=== PATIENT | female | born 1995 ===

== ENCOUNTER 2022-05-22 08:55 | Outpatient (RCR) | payer OTHER, SELFPAY | END 2022-05-23 09:26 | disposition hospice, home (50) | LOC: HO.PHPA 08:55 | PROVIDERS: Visit Provider Psychiatry & Neurology Psychiatry | DX: F31.32 Bipolar disorder, current episode depressed, moderate (principal); F41.1 Generalized anxiety disorder; F14.20 Cocaine dependence, uncomplicated; F12.20 Cannabis dependence, uncomplicated | CPT/HCPCS: 90791 ==

== ENCOUNTER 2022-06-22 11:45 | Outpatient (RCR) | payer OTHER, SELFPAY ==
[2022-06-11 10:50] VITALS: BP 102/80; PULSE 96; TEMP 36.6; BMI 26.9
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
[2022-06-11 12:23] LABS: Amphetamine Screen Urine Not Detected (Not Detect); Barbiturates, Urine Not Detected (Not Detect); Benzodiazepines Screen Urine Not Detected (Not Detect); Cannabinoid Screen Urine Not Detected (Not Detect); Cocaine Screen Urine Not Detected (Not Detect); Fentanyl, urine Not Detected (Not Detect); Opiate Screen Urine Not Detected (Not Detect); Phencyclidine Screen Urine Not Detected (Not Detect)
--- NOTE | 2022-06-13 13:50 | PC.NURSE ---
I met with pt and we reviewed treatment plan/goals. Pt says she's doing well in treatment and is feeling markedly better emotionally despite continued episodes of panic. She sees a therapist at [facility] and has been told she can obtain a med provider after 2 more therapy visits. She continues to regularly meet with her AA sponsor and to attend AA meetings. Tentative discharge date was planned for 06/21/22.
--- NOTE | 2022-06-14 15:45 | PC.NURSE ---
Case opened in treatment team.
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
--- NOTE | 2022-06-21 15:49 | PC.NURSE ---
Case opened in treatment team.
--- NOTE | 2022-06-22 09:19 | P.PNPSP_ITS ---
Subjective Subjective Date of Service: 06/22/22 Reason For Visit: bipolar Interim History: Feels stable for discharge today from [facility]. States that hydroxyzine and Trileptal [facility] did not go through to pharmacy, asking them to be recent. No SI, no hypomanic or manic symptoms, no depressive symptoms, feels good Medication Compliance: Yes Side effects from medications: No Attending Groups: Yes Review of Systems Acute medical concerns: No Medical Review of Systems: unchanged Review of Systems Review of Systems Yes all other systems are reviewed and are negative Constitutional: Reports no additional constitutional complaints Mental Status Exam Mental Status Exam Narrative: NAD. No SI/HI, AH/VH, no safety concerns. Gait and ambulation normal. No abnormal movements, no tics or tremors. Patient Appearance: Well Grooomed and Appropriate Patient Orientation: Person, Place, Time and Situation Level of Consciousness: Appropriate Patient Behavior: Appropriate, Cooperative and Good Eye Contact Mood Description: Appropriate Affect Description: Appropriate Patient Cognition Impaired: No Ability to Follow Directions: Excellent Speech Pattern: Clear, Appropriate and Coherent Memory Description: Intact Hallucinations: None Delusions: Not Present Thought Process: Intact Thought Content: positive for Intact Judgement: Good Diagnostics Vital Signs (24Hr): BMI result Body Mass Index 26.9 Assessment & Plan Assessment & Plan (1) Bipolar disorder, most recent episode manic: Status: Acute Code(s): F31.10 - Bipolar disorder, current episode manic without psychotic features, unspecified Assessment and Plan: Patient feels stable for discharge today. Reports Trileptal working well along with Seroquel for mood stabilization. Hydroxyzine is working well for anxiety. Continues to abstain from substance use, working 12 step program while living in residential treatment facility. No SI, HI, AH, VH. Describes mood as ?good?. Reports several prescriptions did not go through pharmacy, this remote mortgage underwriter called pharmacy and clarified, resending scripts that were missed. Has found groups to be helpful while here. (2) Generalized anxiety disorder: Status: Acute Code(s): F41.1 - Generalized anxiety disorder (3) Cocaine dependence, uncomplicated: Status: Acute Code(s): F14.20 - Cocaine dependence, uncomplicated (4) Cannabis dependence, uncomplicated: Status: Acute Code(s): F12.20 - Cannabis dependence, uncomplicated Plan 1. Patient stable for discharge from [facility] today. Patient educated on: diagnosis, medication risk/benefits, substance abuse and therapeutic strategies Informed Consent: understands Reason for contiued partial hosp. stay Substantial Risk for: stable for discharge Certification I certify that partial hospital treatment is medically necessary due to the symptoms and problems resulting from the patient's mental illness and the failure to treat the patient at the partial hospital level of care would likely result in the patient requiring inpatient psychiatric care which could not be prevented at a less intensive level of care. I spent minutes with the patient and/or on the patient floor today, greater than?50% of which was spent counseling/coordinating care. Discharge Plan Discharge Attending provider: Preston Tao Medications: New buspirone 15 mg tablet 15 mg PO BID 30 Days Qty: 60 0RF hydroxyzine pamoate 50 mg capsule 50 mg PO BID PRN (Reason: anxiety) Qty: 60 0RF quetiapine 300 mg tablet 300 mg PO BEDTIME Qty: 30 0RF oxcarbazepine [Trileptal] 300 mg tablet 300 mg PO BID Qty: 60 0RF Discontinued quetiapine 300 mg Tablet 300 mg PO BEDTIME hydroxyzine pamoate 50 mg Capsule 50 mg PO BID PRN (Reason: Anxiety) buspirone 15 mg Tablet 15 mg PO BID No Action nicotine (polacrilex) 2 mg Gum 2 mg BUCCAL Q2H PRN (Reason: Smoking Cessation) trazodone 100 mg Tablet 200 mg PO BEDTIME Label Comments: Patient taking as needed.
--- NOTE | 2022-06-22 14:30 | PC.NURSE ---
Patient scheduled for routine discharge today. She denied SI or thoughts to harm herself. Reviewed patient's discharge medications with patient. Patient reports taking medications as prescribed and appears to know what she is taking and when to take her medications. Manager Of Loss Prevention Operations of discharge information given to patient along with medication list.
--- NOTE | 2022-06-22 15:18 | PC.NURSE ---
I called and left a message for Elise Lu ([phone]), pt's therapist at [facility], letting her know about pt's discharge from [facility] today, and about her clinical presentation at discharge.
== END 2022-06-22 23:59 | disposition home or self-care (01) ==
LOC: HO.PHPA 11:45
PROVIDERS: Nurse Practitioner Psychiatric/Mental Health; Visit Provider Psychiatry & Neurology Psychiatry
DX: F31.10 Bipolar disorder, current episode manic without psychotic features, unspecified (principal); F41.1 Generalized anxiety disorder; F12.21 Cannabis dependence, in remission; F14.21 Cocaine dependence, in remission; Z79.899 Other long term (current) drug therapy
CPT/HCPCS: 80307; 90791; 90853